=== PATIENT | male | born 1985 | race Caucasian/White ===

== ENCOUNTER 2019-03-23 08:10 | Day surgery (SDC) | payer BC, OTHER ==
[~2019-03-23 08:10] MED LIST: Lactated Ringers 1,000 ML IV SCH
[2019-03-23] MEDS ORDERED: Midazolam 1 MG/ML 2 ML SDV ONE (08:14)
[2019-03-23] MEDS ORDERED: fentaNYL 100 MCG/2 ML SDV ONE (08:14)
[2019-03-23] MEDS ORDERED: Propofol 200 MG/20 ML SDV ONE (08:14)
[2019-03-23] MEDS ORDERED: Lidocaine 2% 5 ML SDV ONE (08:14)
--- NOTE | 2019-03-23 08:38 | PCM.PREANE ---
Preanesthetic Assessment - Anesthesia/Transfusion/Family Hx Anesthesia History: Prior Anesthesia Without Reaction Family History of Anesthesia Reaction: No Transfusion History: No Prior Transfusion(s) Intubation History: Unknown - Review of Systems General: No Symptoms Pulmonary: No Symptoms Cardiovascular: No Symptoms Gastrointestinal: No Symptoms Neurological: No Symptoms Other: Reports: None - Physical Assessment Height: 6 ft Weight: 89.811 kg ASA Class: 1 Mental Status: Alert & Oriented x3 Airway Class: Mallampati = 1 Dentition: Reports: Normal Dentition Thyro-Mental Finger Breadths: 3 Mouth Opening Finger Breadths: 3 ROM/Head Extension: Full Lungs: Clear to Auscultation, Normal Respiratory Effort Cardiovascular: Regular Rate, Regular Rhythm - Allergies Allergies/Adverse Reactions: Allergies Allergy/AdvReac Type Severity Reaction Status Date / Time No Known Allergies Allergy Verified 03/20/19 09:31 - Blood Blood Available: No - Anesthesia Plan Pre-Op Medication Ordered: None - Acknowledgements Anesthesia Type Planned: MAC Pt an Appropriate Candidate for the Planned Anesthesia: Yes Alternatives and Risks of Anesthesia Discussed w Pt/Guardian: Yes Pt/Guardian Understands and Agrees with Anesthesia Plan: Yes PreAnesthesia Questionnaire Respiratory History: Reports: Asthma Other Respiratory History: hx of Asthma in the past- has not used an inhaler for 4 years Musculoskeletal History: Reports: Fracture Other Musculoskeletal History: hx of fx arm as a child - Past Surgical History HEENT Surgical History: Reports: LASIK Male Surgical History: Reports: Vasectomy - SUBSTANCE USE Smoking Status *Q: Never Smoker Recreational Drug Use History: No - HOME MEDS Home Medications: Home Meds . [No Known Home Meds] 03/20/19 [History] - CURRENT (IN HOUSE) MEDS Current Meds: Current Medications Lactated Ringer's (Ringers, Lactated) 1,000 mls @ 125 mls/hr IV ASDIRECTED GAURAV Discontinued Medications Fentanyl (Sublimaze) Confirm Administered Dose 100 mcg .ROUTE .STK-MED ONE Stop: 03/23/19 08:15 Lidocaine (Xylocaine-Mpf 2%) Confirm Administered Dose 5 ml .ROUTE .STK-MED ONE Stop: 03/23/19 08:15 Midazolam HCl (Versed 1 Mg/Ml) Confirm Administered Dose 2 mg .ROUTE .STK-MED ONE Stop: 03/23/19 08:15 Propofol (Diprivan 20 Ml) Confirm Administered Dose 400 mg .ROUTE .STK-MED ONE Stop: 03/23/19 08:15
[2019-03-23] MEDS ORDERED: Bupivacaine 0.5% 10 ML SDV ONE (09:46)
[2019-03-23] MEDS ORDERED: Bupivacaine 0.5% 30 ML SDV ONE (09:46)
[2019-03-23] MEDS ORDERED: Lidocaine 1% 20 ML MDV ONE (09:47)
[2019-03-23] MEDS ORDERED: ePHEDrine 50 MG/ML SDV ONE (10:24)
--- NOTE | 2019-03-23 10:49 | PCM.OPNOTE ---
- General Post-Op/Procedure Note Date of Surgery/Procedure: 03/23/19 Operative Procedure(s): Excision enlarging left hip nevus with layered 3 cm closure Pre Op Diagnosis: Enlarging left hip nevus Post-Op Diagnosis: Same Anesthesia Technique: Local (ASA I), MAC Primary Surgeon: Ho Duhram Rag Production Worker: Zehra Aguilar Fluid Replacement, Intraop: 1,000 EBL in mLs: 5 Condition: Good Free Text/Narrative:: DICTATION [id number] CPT CODE 34484/20594
--- NOTE | 2019-03-23 10:59 | PCM.POSTAN ---
POST ANESTHESIA ASSESSMENT - MENTAL STATUS Mental Status: Alert, Oriented - VITAL SIGNS Vital Signs: Last Vital Signs Temp 36.7 C 03/23/19 10:39 Pulse 82 03/23/19 10:54 Resp 16 03/23/19 10:54 BP 99/58 L 03/23/19 10:54 Pulse Ox 97 03/23/19 10:54 - RESPIRATORY Respiratory Status: Respiratory Rate WNL, Airway Patent, O2 Saturation Stable - CARDIOVASCULAR CV Status: Pulse Rate WNL, Blood Pressure Stable - GASTROINTESTINAL GI Status: No Symptoms - PAIN Pain Score: 0 - POST OP HYDRATION Hydration Status: Adequate & Stable - OBSERVATIONS Free Text/Narrative:: No anesthesia problems
[2019-03-23] MEDS ORDERED: Lactated Ringers 1,000 ML IV SCH (11:00)
--- NOTE | 2019-03-23 11:47 | OR ---
SURGEON: Ho Durham M.D. DATE OF PROCEDURE: 03/23/2019 OPERATION PERFORMED: Excision of 12 mm left hip nevus with layered 3 cm closure. PRIMARY SURGEON: Ho Durham MD. SLOT MACHINE MECHANIC: therapy assistant: Dr. Stephanie Ham, PGY2. ANESTHESIA: Local MAC. ASA CLASSIFICATION: I. PREOPERATIVE DIAGNOSIS: Enlarging and traumatized nevus. POSTOPERATIVE DIAGNOSIS: Enlarging and traumatized nevus. ESTIMATED BLOOD LOSS: 5 mL. INTRAOPERATIVE FLUID REPLACEMENT: 1000 mL. DESCRIPTION OF PROCEDURE: The patient was taken to the operating room and placed on the transfer cart in the right lateral decubitus position. Monitored anesthesia care was provided with gentle sedation. The left hip was prepped with DuraPrep solution. Sterile drapes were applied. A skin incision was marked out and infiltrated with 1% Xylocaine and 0.5% Marcaine solution. Elliptical excision was carried out with a 2 mm margin superiorly and inferiorly. Once the entire lesion was excised, hemostasis was obtained with the use of electrocautery. The 3 cm incision was closed in 2 layers approximating the subcutaneous tissue with interrupted 3-0 Vicryl and the skin with subcuticular 4-0 Monocryl. The incision was Steri- Stripped and dressed with a sterile Tegaderm pad. Sponge, needle, and instrument counts were all correct. The patient tolerated the procedure well and was taken to recovery room in stable condition. BHARATHI SERRATO /[id number]
--- NOTE | 2019-03-23 11:51 | PCM48HPAN ---
Post Anesthesia Note - EVALUATION WITHIN 48HRS OF ANESTHETIC Vital Signs in Normal Range: Yes Patient Participated in Evaluation: Yes Respiratory Function Stable: Yes Airway Patent: Yes Cardiovascular Function Stable: Yes Hydration Status Stable: Yes Pain Control Satisfactory: Yes Nausea and Vomiting Control Satisfactory: Yes Mental Status Recovered: Yes Vital Signs: Last Vital Signs Temp 36.5 C 03/23/19 11:00 Pulse 80 03/23/19 11:15 Resp 16 03/23/19 11:15 BP 106/61 03/23/19 11:15 Pulse Ox 98 03/23/19 11:15 - COMMENTS/OBSERVATIONS Free Text/Narrative:: no anesthesia problems
== END 2019-03-23 11:22 | disposition home or self-care (01) ==
LOC: MW.SDS 08:10
PROVIDERS: ATTEND Surgery
DX: D22.72 Melanocytic nevi of left lower limb, including hip (principal); J45.909 Unspecified asthma, uncomplicated
CPT/HCPCS: 11402; 12032; 88305; J2001; J2250; J2704; J3010; J3490; J7120